=== PATIENT | male | born 1955 | race Two or more races ===

== ENCOUNTER 2017-09-07 06:25 | Day surgery (SDC) | payer OTHER ==
[~2017-09-07 06:25] MED LIST: AMLODIPINE BES2.5 MG PO; ASA81 MG PO; COZAAR100 MG PO; NEURIN SL; PROTECT CARDIO1 EAC1 PO; STRIBILD TABLE1 EACH PO
[2017-09-07] MEDS ORDERED: RECTICARE30 GM TOP (09:16)
[2017-09-07] MEDS ORDERED: PERCOCET 5-3251 EACH PO (09:16)
== END 2017-09-07 13:20 | disposition home or self-care (01) ==
LOC: CIR.AMB 06:25
DX: K60.3 Anal fistula (principal); K60.1 Chronic anal fissure

== ENCOUNTER 2020-02-24 09:30 | Outpatient (CLI) | payer OTHER ==
[~2020-02-24 09:30] MED LIST changes: +PERCOCET 5-3251 EACH PO; +RECTICARE30 GM TOP
== END 2020-02-24 15:00 | disposition home or self-care (01) ==
LOC: PPH VACUNA 09:30
DX: Z23 Encounter for immunization (principal)

== ENCOUNTER 2021-01-19 09:21 | Outpatient (CLI) | payer OTHER | END 2021-01-19 09:30 | disposition home or self-care (01) | LOC: SONOGRAMA 09:21 | DX: K80.20 Calculus of gallbladder without cholecystitis without obstruction (principal) ==

== ENCOUNTER 2021-03-03 09:31 | Outpatient (CLI) | payer OTHER | END 2021-03-03 09:38 | disposition home or self-care (01) | LOC: RAD 09:31 | PROVIDERS: ATTEND Ophthalmology | DX: I10 Essential (primary) hypertension (principal); I15.8 Other secondary hypertension ==

== ENCOUNTER 2021-03-23 08:37 | Outpatient (CLI) | payer OTHER | END 2021-03-23 08:42 | disposition home or self-care (01) | LOC: SONOGRAMA 08:37 | PROVIDERS: ATTEND Internal Medicine Gastroenterology | DX: K82.4 Cholesterolosis of gallbladder (principal) ==

== ENCOUNTER 2021-03-30 12:45 | Outpatient (CLI) | payer OTHER | END 2021-03-31 16:05 | disposition home or self-care (01) | LOC: MRI 12:45 | PROVIDERS: ATTEND Internal Medicine Gastroenterology | DX: K82.4 Cholesterolosis of gallbladder (principal); R10.13 Epigastric pain | CPT/HCPCS: 74182 ==

== ENCOUNTER 2021-05-19 05:12 | Day surgery (SDC) | payer OTHER ==
[~2021-05-19 05:12] MED LIST changes: +GABAPENTIN300 M2 PO; +JULUCA 50-25 M1 EACH PO
[2021-05-19] MEDS ORDERED: PERCOCET 5-3251 EACH PO (11:38)
[2021-05-19] MEDS ORDERED: MIRALAX510 GM PO (11:39)
[2021-05-19] MEDS ORDERED: SURFAK240 M1 PO (11:39)
[2021-05-19] MEDS ORDERED: NEURONTIN600 M1 PO (11:40)
== END 2021-05-19 16:05 | disposition home or self-care (01) ==
LOC: CIR.AMB 05:12
PROVIDERS: ATTEND Surgery
DX: K80.10 Calculus of gallbladder with chronic cholecystitis without obstruction (principal); K42.9 Umbilical hernia without obstruction or gangrene; Z91.018 Allergy to other foods; I10 Essential (primary) hypertension; Z87.891 Personal history of nicotine dependence; F12.90 Cannabis use, unspecified, uncomplicated; Z79.82 Long term (current) use of aspirin

== ENCOUNTER 2022-02-07 07:08 | Outpatient (CLI) | payer OTHER ==
[~2022-02-07 07:08] MED LIST changes: +MIRALAX510 GM PO; +NEURONTIN600 M1 PO; +SURFAK240 M1 PO
== END 2022-02-07 07:09 | disposition home or self-care (01) ==
LOC: NUCLEAR 07:08
PROVIDERS: ATTEND Internal Medicine
DX: I25.10 Atherosclerotic heart disease of native coronary artery without angina pectoris (principal); Z91.018 Allergy to other foods
CPT/HCPCS: 78452; 93017; A9500

== ENCOUNTER 2022-02-28 13:04 | Outpatient (CLI) | payer OTHER | END 2022-02-28 13:25 | disposition home or self-care (01) | LOC: RAD 13:04 | PROVIDERS: ATTEND Specialist/Technologist, Other Nephrology | DX: R10.9 Unspecified abdominal pain (principal); N18.30 Chronic kidney disease, stage 3 unspecified; R31.9 Hematuria, unspecified ==